=== PATIENT | male | born 1990 | race Caucasian/White ===

== ENCOUNTER → 2017-12-12 | Outpatient (CLI) | payer BC | LOC: M WUC 15:21 | DX: M25.512 Pain in left shoulder (principal) | CPT/HCPCS: 73030 ==

== ENCOUNTER → 2017-12-12 | Outpatient (CLI) | payer BC | LOC: M LRY 15:14 | DX: M25.512 Pain in left shoulder (principal) ==

== ENCOUNTER 2019-02-03 16:49 | Emergency (ER) | payer BC, SELFPAY ==
[~2019-02-03] VITALS: Ht 175.3 cm; Wt 84.5 kg
[2019-02-03 16:49] VITALS: BP 152/84
== END 2019-02-03 18:02 | disposition left against medical advice (07) ==
LOC: M ED 16:49
DX: Z53.21 Procedure and treatment not carried out due to patient leaving prior to being seen by health care provider (principal)